=== PATIENT | male | born 2005 | race African-American/Black ===

== ENCOUNTER 2024-08-24 16:27 | Emergency (ER) | payer SELFPAY ==
[~2024-08-24] VITALS: Ht 175.3 cm; Wt 67.0 kg
[2024-08-24 16:34] VITALS: O2SAT 99
[2024-08-24] MEDS: ACETAMINOPHEN 650MG/20.3ML UDC PO ONE (18:20)
[2024-08-24 18:30] VITALS: BP 110/66; PULSE 70; RESP 18; TEMP 36.72516; O2SAT 100
== END 2024-08-24 19:18 | disposition home or self-care (01) ==
LOC: ER 16:27
DX: J02.8 Acute pharyngitis due to other specified organisms (principal); B97.89 Other viral agents as the cause of diseases classified elsewhere
CPT/HCPCS: 87070; 87430; 99283

== ENCOUNTER 2024-08-26 17:10 | Emergency (ER) | payer SELFPAY ==
[~2024-08-26] VITALS: Ht 175.3 cm; Wt 68.0 kg
[2024-08-26 17:22] VITALS: O2SAT 100
[2024-08-26] MEDS ORDERED: DEXAMETHASONE 1 MG/ML ORAL SYR PO ONE (19:00)
[2024-08-26] MEDS ORDERED: AMOX1TAB16 MT (19:01)
[2024-08-26] MEDS: DEXAMETHASONE 10 MG/ML VIAL PO NR (19:23)
[2024-08-26] MEDS: ONDANSETRON 4MG ODT PO ONE (19:23)
[2024-08-26] MEDS: KETOROLAC 30MG/ML VIAL IM ONE (19:23)
[2024-08-26] MEDS: ACETAMINOPHEN 500MG TABLET PO ONE (19:23)
[2024-08-26 19:30] VITALS: BP 122/68; PULSE 88; RESP 16; TEMP 36.94740; O2SAT 100
== END 2024-08-26 19:31 | disposition home or self-care (01) ==
LOC: ER 17:10
DX: J02.9 Acute pharyngitis, unspecified (principal)
CPT/HCPCS: 99284; 96372; Q0162; J1100; J1885

== ENCOUNTER 2025-02-13 15:08 | Emergency (ER) | payer MEDICAID ==
[~2025-02-13] VITALS: Ht 175.3 cm; Wt 69.0 kg
[2025-02-13 15:19] VITALS: O2SAT 98
[2025-02-13 15:24] VITALS: BP 119/81; PULSE 66; RESP 18; TEMP 36.9; O2SAT 100
[2025-02-13] MEDS ORDERED: CARB15DR63 LEFT EAR (18:34)
== END 2025-02-13 19:02 | disposition home or self-care (01) ==
LOC: ER 15:08
DX: H61.22 Impacted cerumen, left ear (principal); Z88.0 Allergy status to penicillin
CPT/HCPCS: 99282